=== PATIENT | male | born 1970 | race African-American/Black ===

== ENCOUNTER 2018-06-15 22:45 | Emergency (ER) | payer SELFPAY ==
[~2018-06-15] VITALS: Ht 182.9 cm; Wt 100.0 kg
[2018-06-16] MEDS ORDERED: TETANUS, DIPHTHERIA, PERTUSSIS VAC/PF 0.5ML (>7YR OLD) IM ONE (01:30)
[2018-06-16 01:55] VITALS: BP 138/89
== END 2018-06-16 01:55 | disposition home or self-care (01) ==
LOC: ER 22:45
DX: S61.411A Laceration without foreign body of right hand, initial encounter (principal); W45.8XXA Other foreign body or object entering through skin, initial encounter; Y93.89 Activity, other specified; Y92.89 Other specified places as the place of occurrence of the external cause; Y99.8 Other external cause status
CPT/HCPCS: 12001; 90471; 90715; 99283